=== PATIENT | male | born 1980 | race Caucasian/White ===

== ENCOUNTER 2016-12-20 | Emergency (ER) | payer OTHER ==
[~2016-12-20] MED LIST: FLEXERIL PO; LORTAB 5/500 TA1 TA1 PO; NABUMETONE PO; NAPROXEN PO; NO MEDICATIONS; SKELAXIN PO; VICODIN 5/500 T1 TAB PO
--- NOTE | ~2016-12-20 | CT4 ---
[facility] A Service [facility] RADIOLOGY TEXT RESULTS PATIENT: BRENNEN LEMOS LOCATION: SED : 80 UNIT #: [id number] AGE: [address]: Hayder Pinon MD SEX: M ORDER DR: [id number] [place] [id number] E MR#: [id number] Acc #: [id number] NAME: BRENNEN LEMOS : 1980 SEX: M STUDY DATE/TIME: 12/20/2016 2:31 UNIT: SED ROOM: STUDY DESCRIPTION: CT Abd and Pelv Wo Cont Attending Physician: Hayder Pinon M.D. Ordering Physician: Hayder Pinon M.D. Primary Care Physician: Primary Care Physician No MEDICAL IMAGING REPORT This report is preliminary unless electronic signature is present. EXAM CT abdomen and pelvis INDICATION Left flank pain and hematuria. Dysuria for 1 day. Renal calculi. TECHNIQUE CT of the abdomen and pelvis without contrast. Coronal and sagittal reconstructions were obtained. This CT exam was performed with one or more of the following radiation dose reduction techniques: automatic exposure control, adjustment of mA and/or kV according to patient size, and iterative reconstruction. COMPARISON CT abdomen and pelvis 03/27/2013. FINDINGS ABDOMEN: No renal calculi. No hydronephrosis. Remainder of the solid abdominal organs are within normal limits. The spleen is surgically absent. The gallbladder is not distended. The bowel is not dilated. The appendix is normal. No enlarged retroperitoneal or mesenteric lymph nodes. The abdominal aorta is normal in caliber. PELVIS: The bladder is unremarkable. No enlarged pelvic or inguinal lymph nodes. No acute osseous abnormalities. [facility] A Service [facility] RADIOLOGY TEXT RESULTS PATIENT: BRENNEN LEMOS LOCATION: SED : 80 UNIT #: [id number] AGE: [address]: Hayder Pinon MD SEX: M ORDER DR: IMPRESSION 1. No acute findings in the abdomen or pelvis. 2. No renal calculi. Normal appendix. Dictated by... Leo Leal M.D. THIS IS AN ELECTRONICALLY VERIFIED REPORT Leo Leal M.D. at 12/20/2016 4:29 AM VICKIE/vinicio TD: 12/20/2016 03:36 JOB #: [id number] MEDICAL IMAGING REPORT Page 1 of 1
[2016-12-20 02:20] LABS: URINE SOURCE CLEAN CATCH
[2016-12-20 02:23] LABS: URINE APPEARANCE SL CLOUDY; URINE BILIRUBIN NEG (NEG); URINE BLOOD 3+ (NEG); URINE COLOR RED; URINE KETONE 1+ (NEG); URINE LEUKOCYTE ESTERASE 2+ (NEG); URINE NITRATE POS (NEG); URINE PH 6.5 (5-8); URINE PROTEIN 3+ (NEG); URINE SPECIFIC GRAVITY 1.025 (1.003-1.035)
[2016-12-20 02:25] LABS: URINE GLUCOSE 50 MG/DL (NORM)
[2016-12-20 02:26] LABS: CULTURE INDICATED? YES; MICRO INDICATED? YES; URINE BACTERIA 1+ (NEG); URINE RBC 100-200 /[HPF] (0-2); URINE SQUAMOUS EPITHELIAL CELL FEW /[HPF]
[2016-12-20 02:49] LABS: HEMOGLOBIN 13.8 gm/dL (13.0-16.0); MEAN CELL VOLUME 96.2 FL (83-96); MEAN CORPUSCULAR HEMOGLOBIN 31.6 PG (28-34); MEAN CORPUSCULAR HGB CONC 32.9 g/dL (30-36); MEAN PLATELET VOLUME 8.7 FL (6.5-11.5); RED BLOOD COUNT 4.37 X10e (3.90-5.60); RED CELL DISTRIBUTION WIDTH 13.7 % (11.0-15.5); WHITE BLOOD COUNT 22.2 X10e3 (4.0-10.5)
[2016-12-20 03:06] LABS: BUN/CREATININE RATIO 17.5; CALCIUM SERUM 9.1 mg/dL (8.4-10.2); CREATININE SERUM 0.8 mg/dL (0.6-1.4); POTASSIUM 3.8 mmol/L (3.5-5.1)
== END 2016-12-20 03:40 | disposition home or self-care (01) ==
LOC: SED
PROVIDERS: Emergency Medicine
DX: R31.9 Hematuria, unspecified (principal); F17.200 Nicotine dependence, unspecified, uncomplicated; Z87.442 Personal history of urinary calculi; Z90.81 Acquired absence of spleen; Z88.0 Allergy status to penicillin; Z88.5 Allergy status to narcotic agent
CPT/HCPCS: 74176; 80048; 81003; 85027; 87086; 96361; 96374; 99284; J1885